=== PATIENT | male | born 1960 | race Caucasian/White ===

== ENCOUNTER 2018-01-31 05:15 | Day surgery (SDC) | payer MEDICAID ==
[~2018-01-31] VITALS: Ht 177.8 cm; Wt 61.2 kg
--- NOTE | ~2018-01-31 | OP ---
PATIENT NAME: EDITH LAUREN MEDICAL RECORD: [id number] :60 LOCATION:D.OPS ADMISSION DATE: SURGEON: RUBI BOLAND MD DATE OF OPERATION: 01/31/2018 PREOPERATIVE DIAGNOSES: Chronic rotator cuff tear with the supraspinatus tendon retraction, impingement syndrome, acromioclavicular arthritis. POSTOPERATIVE DIAGNOSES: Chronic rotator cuff tear with the supraspinatus tendon retraction, impingement syndrome, acromioclavicular arthritis. PROCEDURES: 1. Superior capsular reconstruction. 2. Open distal clavicle excision, 1 cm. 3. Open subacromial decompression. SURGEON: Rubi Boland MD ANESTHESIA: General. INTRAOPERATIVE COMPLICATIONS: None. SUMMARY OF PATHOLOGIC FINDINGS: Consistent with the preoperative MRI. On preoperative examination, the patient had a very large supraspinatus tendon tear with retraction. The patient also had an infraspinatus tendon tear with retraction. Subscapularis was relatively intact. Biceps tendon had already been torn. There was some erosion of the greater tuberosity; however, the glenohumeral joint was pristine and intact without arthritic changes. OPERATIVE SUMMARY IN DETAIL: After obtaining the appropriate preoperative orthopedic surgery consent as well as anesthetic consultation, evaluation and clearance, the patient was brought to the operating room and placed on the operating table in supine position. After general laryngeal mask administered, the patient was placed in the beach chair position. All pressure points were padded and the patient was held firmly to the operating table using the vacuum pack suction system. Right upper extremity and shoulder were prepped and draped in routine sterile fashion. The arm was held in the Trimano arm holding device. Planned incision was made using a skin marking pen. Anterolateral incision was made from medial to the acromioclavicular joint over the anterolateral aspect of the acromion and down through the median raphe of the deltoid. Subperiosteal dissection was carried down and saved for later reapproximation. The entire distal clavicle was exposed. Distal clavicle excision was then followed by subacromial decompression of the type 3 acromion. Having completed this, copious irrigation was followed by tagging identifying the residual rotator cuff again finding as noted. The patient had essentially no capacity for reapproximation of the supraspinatus tendon given its retraction. The superior aspect of the glenoid was identified and cleared off, slight burring was done. At this point, 3 Arthrex 2.9 suture tacks were placed at the 10:30, 12 o'clock, and 1 o'clock position. The dermal graft that had been prepared on the back table was measured. It was then brought onto the field where the scorpion passer was then used to pass the tails of the suture tacks both posterior middle and anterior. Holding these taut, this graft was then parachuted into place tied centrally, anteriorly, and posteriorly. It was checked for a good firm security. At this OPERATIVE REPORT [id number] LEONIDASEDITHLETICIA SHAW point, the lateral aspect of the graft was tagged with 2 hemostats, the Trimano arm holding device was then placed in the 30:30 position without substantial tension inferiorly, the appropriate positions were marked and the distal aspect of the graft was cut and then the medial row of the Arthrex SpeedBridge was placed. These single to double tags were then passed and then it was determined exactly where the lateral row would go. The lateral row was then punched and passed with a crisscross configuration. Having completed this, the anterior subscapularis was reapproximated back to the graft using the #2 FiberWire tails from the lateral row suture anchors. This was likewise repeated using the remnants of the infraspinatus tendon, which were suboptimal at best. However, it did have a good reapproximation. The shoulder was then ranged and the humeral head stayed in place. It is of note that a formal tuberoplasty was performed to prevent further impingement. Having completed this, imbricated suture with #2 Ethibond was utilized for [id number] style suture in the acromion for reapproximating the subdeltoid fascia. This was then oversewn again with #2 Ethibond followed by #1 Vicryl, 2-0 Vicryl and skin tana. Sterile dressings were applied. The patient was placed in an abduction pillow brace and having completed this, the patient was awakened, LMA was removed and was taken to recovery room in stable condition. All final needle and sponge counts were correct. TRANSINT:[id number] Voice Confirmation ID: [id number] DOCUMENT ID: [id number] KYA BLOUNT, RUBI NICOLE at 1125 CC: [id number] DICTATION DATE: 01/31/18 0919 DIE CASTING MACHINE OPERATOR: 01/31/18 1108 [facility] 01/31/18 [place] [id number] [place] [address]
[~2018-01-31 05:15] MED LIST: HYDROCODONE-APA1 TAB PO
[2018-01-31 06:42] VITALS: BP 121/73; Ht 177.8 cm; Wt 61.2 kg
[2018-01-31] MEDS ORDERED: DILAUDID2 MG PO (08:59)
== END 2018-01-31 10:42 | disposition home or self-care (01) ==
LOC: D.OPS 05:15 → D.PAN 07:30 → D.OPS 10:42
DX: M75.101 Unspecified rotator cuff tear or rupture of right shoulder, not specified as traumatic (principal); M75.41 Impingement syndrome of right shoulder; M13.811 Other specified arthritis, right shoulder; Z01.812 Encounter for preprocedural laboratory examination

== ENCOUNTER → 2018-05-03 12:19 | Outpatient (CLI) | payer MEDICAID ==
[2018-01-31 06:42] VITALS: BMI 19.4
[~2018-05-03 12:19] MED LIST changes: +DILAUDID2 MG PO
== END | disposition home or self-care (01) ==
LOC: D.US 04-18 13:30
DX: I87.2 Venous insufficiency (chronic) (peripheral) (principal)

== ENCOUNTER → 2018-05-24 14:24 | Outpatient (CLI) | payer MEDICAID ==
[2018-01-31 06:42] VITALS: BMI 19.4
== END | disposition home or self-care (01) ==
LOC: D.MRI 14:24
DX: M25.511 Pain in right shoulder (principal)

== ENCOUNTER 2018-07-17 07:14 | Day surgery (SDC) | payer MEDICAID ==
[~2018-07-17] VITALS: Ht 177.8 cm; Wt 61.2 kg
[2018-07-17 08:35] VITALS: BP 125/80; Ht 177.8 cm; Wt 61.2 kg
--- NOTE | 2018-07-17 14:40 | NUR ---
REC'D FROM [facility]. IMMEDIATE C/O PAIN TO RIGHT LEG 05/01. NO FAMILY AT BEDSIDE. DRESSING CDI.
--- NOTE | 2018-07-17 14:53 | NUR ---
NORCO 5MG [address] TABS [address] PAIN[address] ROY CAME BY AND TOLD PT HE WAS A DIFFICULT ONE THAT HIS NERVES WERE SO CLOSE TO THE PROCEDURE SITE. MARLEN GONZALESLala BROUGHT TO PT. WANTS HIM TO F/U IN HIS OFFICE SUNDAY FOR DRESSING REMOVAL.
--- NOTE | 2018-07-17 15:20 | NUR ---
TOLERATED DIET. IV DC'D WITH CATHETER INTACT. ASKED FOR A PAIN PILL FOR THE ROAD. EXPLAINED TO PT HE HAD RECEIVED 2 TABLETS AT 1453 AND THEY ARE ORDERED FOR EVERY 4 HOURS. RELATES HE HAS TAKEN NORCO FOR SO LONG HE CAN'T TELL THEY DO VERY MUCH GOOD ANYMORE.
--- NOTE | 2018-07-17 15:30 | NUR ---
SPOKE WITH PATIENT'S EX AND INFORMED HER SHE COULD START ON HER WAY THAT HE COULD GO HOME AT 1540.
--- NOTE | 2018-07-17 15:50 | NUR ---
ASSISTED PATIENT WITH GETTING DRESSED. TOLD PATIENT TO KEEP LEG ELEVATED. VERBALIZED UNDERSTANDING.
--- NOTE | 2018-07-17 16:10 | NUR ---
DC'D HOME WITH EX VIA PRIVATE VEHICLE. TAKEN TO VEHICLE VIA WC. STABLE AT TIME OF DC.
--- NOTE | 2018-07-17 18:53 | OP ---
PATIENT NAME: EDITH LAUREN MEDICAL RECORD: [id number] :60 LOCATION:D.OPS ADMISSION DATE: SURGEON: VAN ROY MD DATE OF OPERATION: 07/17/2018 PREOPERATIVE DIAGNOSES: 1. Pathologic greater saphenous venous reflux, right. 2. Multiple right lower extremity symptomatic varicosities. POSTOPERATIVE DIAGNOSES: 1. Pathologic greater saphenous venous reflux, right. 2. Multiple right lower extremity symptomatic varicosities. PROCEDURES: 1. VNUS radiofrequency ablation of the right greater saphenous vein. The length treated was 55 cm. 2. Avulsion phlebectomies of right lower extremity times 42. SURGEON: Van Roy MD TODDLER GUIDE: None. BLOOD LOSS: Minimal. ANESTHESIA: General. COMPLICATIONS: None. The risks, possible complications, and alternatives to the procedures were explained to the patient. He elected to proceed. The discussion specifically included, but was not limited to, bleeding requiring emergency reoperation, infection, nerve injury, paresthesias as well as possibility that there would be recurrent or persistent varicosities. During the operation, there was no apparent nerve injury. The patient's adipose layer is very thin involving his lower extremities. OPERATIVE COURSE: The patient was seen in the holding area. With him standing, I marked all the varicose veins of the right lower extremity. He has varicose veins involving the left lower extremity as well; however, these are asymptomatic. The patient was then conveyed to the operating room. General anesthesia was induced by the anesthesia staff. The right lower extremity was sterilely prepped and draped. I percutaneously accessed the right greater saphenous vein at the ankle. Guidewire was passed easily. A dilator sheath was advanced. The dilator and wire were removed. Through the 7-Danish sheath, I advanced the radiofrequency catheter. This was advanced under ultrasound to the saphenofemoral junction. I then withdrew it 2 cm into the greater saphenous vein. Under ultrasonographic guidance, I injected crystalloid around the vein to act as a heat sink to prevent injury to surrounding structures such as nerves. The patient was positioned in the Trendelenburg position. I confirmed that the tip of the catheter had not moved. It was activated twice. With each 7-cm withdrawal, I activated the radiofrequency catheter again. It was then OPERATIVE REPORT [id number] EDITH LAUREN removed. The patient was then positioned in a steep reverse Trendelenburg. I then injected a foamed sclerosant up through the sheath. The sheath was then removed. The puncture site was closed with a horizontal mattress 4-0 Vicryl Rapide suture. I then went about performing the avulsion phlebectomies. Small skin nicks were accomplished over the varicose veins. Utilizing a phlebectomy hook, I removed portions of varicose veins. The patient was then flipped over and placed prone. The right lower extremity was sterilely prepped and draped. Additional avulsion phlebectomies were performed through small skin incisions. Sterile dressings were applied including a pressure dressing. The patient was then extubated and conveyed to postanesthesia care unit, where he was in stable condition. He will be dismissed home on [place] for pain. I will see him in the office in about 2-3 days for dressing removal. TRANSINT:[id number] Voice Confirmation ID: [id number] DOCUMENT ID: [id number] VAN ROY MD at 1853 CC: [id number] DICTATION DATE: 07/17/18 1429 CIGARETTE TIPPER: 07/17/18 1450 [facility] 07/17/18 [facility] [address] [place] [address]
== END 2018-07-17 16:10 | disposition home or self-care (01) ==
LOC: D.OPS 07:14 → D.PAN 09:45 → D.OPS 16:10
DX: I87.2 Venous insufficiency (chronic) (peripheral) (principal); I83.91 Asymptomatic varicose veins of right lower extremity

== ENCOUNTER → 2018-07-25 13:22 | Outpatient (CLI) | payer MEDICAID ==
[2018-07-17 08:35] VITALS: BMI 19.4
== END | disposition home or self-care (01) ==
LOC: D.RAD 13:22
DX: M25.50 Pain in unspecified joint (principal); M19.90 Unspecified osteoarthritis, unspecified site; M79.641 Pain in right hand

== ENCOUNTER 2018-08-25 10:31 | Emergency (ER) | payer MEDICAID ==
[~2018-08-25] VITALS: Ht 177.8 cm; Wt 61.4 kg
[2018-08-25 10:34] VITALS: Ht 177.8 cm; Wt 61.4 kg
[2018-08-25 11:45] LABS: BASOPHILS 0.1 % (0-2); EOSINOPHILS 0.2 % (0-7); HEMATOCRIT 39.6 % (42.0-54.0); HEMOGLOBIN 13.7 g/dL (13.5-17.5); IMMATURE GRANULOCYTES 0.4 % (0-5); LYMPHOCYTES 14.1 % (15-50); MCH 32.4 pg (26.0-34.0); MCHC 34.6 g/dL (31.0-37.0); MCV 93.6 fL (80.0-100.0); MEAN PLATELET VOLUME 8.8 fL (7.4-10.4); MONOCYTES 6.6 % (2-11); NEUTROPHILS 78.6 % (40-80); PLATELET COUNT 365 10x3/uL (130-400); RBC 4.23 10x6/uL (4.20-6.10); RDW 14.6 % (11.5-14.5); WBC 16.3 10x3/uL (4.8-10.8)
[2018-08-25 11:58] LABS: ALBUMIN 2.9 g/dL (3.4-5.0); ALKALINE PHOSPHATASE 68 U/L (46-116); ALT (SGPT) 25 U/L (10-68); BILIRUBIN - TOTAL 0.33 mg/dL (0.2-1.3); CALC OSMOLALITY 274 mosm/kg (275-300); CALCIUM 8.7 mg/dL (8.5-10.1); CARBON DIOXIDE 27.8 mmol/L (21.0-32.0); CHLORIDE - SERUM 100 mmol/L (98-107); CREATININE - SERUM 0.7 mg/dL (0.6-1.3); GLUCOSE 131 mg/dL (74-106); SODIUM 136 mmol/L (136-145); UREA NITROGEN 15 mg/dL (7-18); eGFR NON AFRICAN AMERICAN > 90 mL/min (90-120)
[2018-08-25 12:18] LABS: APPEARANCE CLOUDY (CLEAR); BILIRUBIN NEGATIVE (NEGATIVE); COLOR YELLOW (YELLOW); GLUCOSE NEGATIVE (NEGATIVE); KETONE NEGATIVE (NEGATIVE); NITRITE NEGATIVE (NEGATIVE); PROTEIN 1+ mg/dL (NEGATIVE); UROBILINOGEN NORMAL (NORMAL)
[2018-08-25 12:19] LABS: BACTERIA MANY /hpf (NONE SEEN); EPITHELIAL CELLS 0-5 /hpf (0-5); RED CELLS - URINE 0-5 /hpf (0-5)
[2018-08-25] MEDS ORDERED: VIBRAMYCIN 100100 MG PO (14:23)
[2018-08-25] MEDS ORDERED: VOLTAREN75 MG PO (14:23)
[2018-08-25 14:54] VITALS: BP 110/80
== END 2018-08-25 14:57 | disposition home or self-care (01) ==
LOC: D.ER 10:31
PROVIDERS: Family Medicine
DX: N45.3 Epididymo-orchitis (principal); N43.3 Hydrocele, unspecified; F17.200 Nicotine dependence, unspecified, uncomplicated

== ENCOUNTER → 2018-11-12 14:06 | Outpatient (CLI) | payer MEDICAID ==
[2018-08-25 10:34] VITALS: BMI 19.4
[~2018-11-12 14:06] MED LIST changes: +VIBRAMYCIN 100100 MG PO; +VOLTAREN75 MG PO
== END | disposition home or self-care (01) ==
LOC: D.MRI 14:06
PROVIDERS: ATTEND Orthopaedic Surgery
DX: M25.512 Pain in left shoulder (principal)

== ENCOUNTER 2019-04-21 05:30 | Day surgery (SDC) | payer MEDICAID ==
[~2019-04-21] VITALS: Ht 177.8 cm; Wt 60.3 kg
[2019-04-21 06:26] LABS: HEMATOCRIT 40.1 % (42.0-54.0); HEMOGLOBIN 13.6 g/dL (13.5-17.5); MCH 31.5 pg (26.0-34.0); MCHC 33.9 g/dL (31.0-37.0); MCV 92.8 fL (80.0-100.0); RBC 4.32 10x6/uL (4.20-6.10); RDW 12.9 % (11.5-14.5); WBC 8.3 10x3/uL (4.8-10.8)
[2019-04-21 06:28] VITALS: BP 131/82; Ht 177.8 cm; Wt 60.3 kg
[2019-04-21] MEDS ORDERED: PERCOCET 10-321 EAC1 PO (09:28)
--- NOTE | 2019-04-21 09:40 | NUR ---
1520 DR. BOLAND ROUNDS WITH FAMILY.
--- NOTE | 2019-04-21 12:39 | OP ---
PATIENT NAME: EDITH LAUREN MEDICAL RECORD: [id number] :60 LOCATION:D.OPS ADMISSION DATE: SURGEON: RUBI BOLAND MD DATE OF OPERATION: 04/21/2019 PREOPERATIVE DIAGNOSES: Massive rotator cuff repair of the left shoulder with anterior escape -- supraspinatus tendon tear and subscapularis tendon tear. PROCEDURES: 1. Superior capsular reconstruction of the left shoulder done open procedure. 2. Separate repair of the subscapularis. SURGEON: Rubi Boland MD ASSISTANT CENTER MANAGER: Mando Renteria APN INTRAOPERATIVE COMPLICATIONS: None. SUMMARY OF PATHOLOGIC FINDINGS: Consistent with preoperative MRI, the patient had a subscapularis tear with some retraction; however, it was mobilized and was repairable. The supraspinatus; however, was not repairable. The infraspinatus was intact, but the patient did have a previously torn biceps tendon. Given his young age, attention was turned to try and continue with joint adventism thusly a SCR and subscap repair was planned. OPERATIVE SUMMARY IN DETAIL: After obtaining the appropriate preoperative orthopedic surgery consent as well as anesthetic consultation, evaluation and clearance, the patient was brought to the operating room and placed on the operating table in supine position. After general laryngeal mask airway was administered, the patient was placed in the beach chair position. All pressure points were well padded to include bilateral lower heels. The patient was held firmly to the operating table using the vacuum pack suction system. The patient's left upper extremity and shoulder were then prepped and draped in routine sterile fashion. The arm was held in the Trimano arm holding device by Arthrex. Deltopectoral incision was taken and an extensile incision was taken in keeping with a medial based saber incision. Dissection was carried down. The cephalic vein was identified and retracted laterally with the deltoid. At this point, the rotator cuff tear superiorly as well as the subscapularis tear anteriorly was noted. Attention was first turned to mobilization of the subscapularis. It was tagged with #2 Ethibond. Serial and sequential mobilization was done on the deep and superior surface of the subscapularis to have it become mobilized. Tuberoplasty was then performed of the lesser tuberosity. After serial and sequential mobilization had been done for quite some time and care was taken to not over tighten the subscapularis, it was reapproximated back to the lesser tuberosity using a SpeedBridge from Arthrex. Two medial rows were then fastened with crisscross followed by the 2 lateral rows. The sutures from all 4 were then utilized for further anchorage of the subscapularis tear resulting in what I think was a very good subscapularis repair in the neutral position. Having completed this, attention was then turned to the superior capsular reconstruction. Dissection was carried down on the superior one-third of the humeral head. After portions of the labrum were taken down along with some of the retracted rotator cuff, the glenoid was directly visual. Three suture tacks from Arthrex were placed at the 1 o'clock, 12 o'clock, and 11 o'clock position. The dermal allograft was then cut to the appropriate length and depth. It was then sutured into the medial aspect of the OPERATIVE REPORT [id number] EDITH LAUREN, airplaned in, and tied off for good fixation. Laterally, it was fixed with a SpeedBridge with medial and lateral rows. All of the sutures from all 4 anchors were then utilized again to number one stabilize the graft and number 2 reapproximate the subscapularis to the graft itself. Posteriorly, the graft was reapproximated to the infraspinatus tendon with good repair. Having completed this, after copious irrigation, the deltoid that had been taken down extensile from the anterior clavicle was reapproximated back to the anterior clavicle, periosteum and fascia from the medial aspect of the deltoid anteriorly to the acromioclavicular joint. This was reapproximated with good suture using #2 Ethibond. At this point, the closure was then completed by Mando Renteria, which included closure of the deltopectoral interval as well as the skin using #1 Vicryl, 2-0 Vicryl and skin tana. Sterile dressings were applied. While the patient was then anesthetized, the patient was placed in an abduction shoulder immobilizer. He was then awakened and taken to the recovery room in stable condition. All final needle and sponge counts were correct. TRANSINT:[id number] Voice Confirmation ID: [id number] DOCUMENT ID: [id number] KYA BLOUNT, RUBI NICOLE at 1234 CC: [id number] DICTATION DATE: 04/21/19 1053 AUTOMOTIVE GLAZIER: 04/21/19 1236 [facility] 04/21/19 [place] [id number] [place] [id number]
== END 2019-04-21 11:55 | disposition home or self-care (01) ==
LOC: D.OPS 05:30 → D.PAN 07:30 → D.OPS 11:55 → D.PAN 04-24 07:30
PROVIDERS: Anesthesiology; ATTEND Orthopaedic Surgery
DX: M75.102 Unspecified rotator cuff tear or rupture of left shoulder, not specified as traumatic (principal); S46.812A Strain of other muscles, fascia and tendons at shoulder and upper arm level, left arm, initial encounter; X58.XXXA Exposure to other specified factors, initial encounter